=== PATIENT | male | born 1955 | race Caucasian/White ===

== ENCOUNTER 2018-12-21 12:18 | Emergency (ER) | payer BC ==
[2018-12-21] MEDS ORDERED: Sodium Chloride 0.9% 2.5 ML Syringe FLUSH PRN (12:40)
[2018-12-21] MEDS ORDERED: Sodium Chloride 0.9% 1,000 ML IV ONE (12:40)
[2018-12-21] MEDS ORDERED: Sodium Chloride 0.9% 10 ML Syringe FLUSH PRN (12:40)
[2018-12-21] MEDS ORDERED: Ondansetron 4 MG/2 ML SDV IVPUSH ONE (12:40)
[2018-12-21] MEDS ORDERED: Ketorolac 30 MG/ML SDV IVPUSH ONE (12:40)
--- NOTE | 2018-12-21 12:46 | EDM.PDOC ---
ED HPI GENERAL MEDICAL PROBLEM - General Chief Complaint: Abdominal Pain Stated Complaint: ABDOMINAL PAIN Time Seen by Provider: 12/21/18 12:19 Source of Information: Reports: Patient History Limitations: Reports: No Limitations - History of Present Illness INITIAL COMMENTS - FREE TEXT/NARRATIVE: History of present illness: []Patient started having abdominal pain radiating to his right flank yesterday afternoon. One episode of emesis asked him Tylenol helped alone his pain continued. Today he had one more episode of vomiting and worsening pain and called [facility] who recommended they come to the ER for evaluation. He denies any fevers, chills, diarrhea or previous episodes of this pain or abdominal surgeries. Review of systems: As per history of present illness and below otherwise all systems reviewed and negative. Past medical history: As per history of present illness and as reviewed below otherwise noncontributory. Surgical history: As per history of present illness and as reviewed below otherwise noncontributory. Social history: No reported history of drug or alcohol abuse. Family history: As per history of present illness and as reviewed below otherwise noncontributory. Physical exam: General: Well developed, well nourished in NAD HEENT: Atraumatic, normocephalic, pupils reactive, negative for conjunctival pallor or scleral icterus, mucous membranes moist, throat clear, neck supple, nontender, trachea midline. Lungs: Clear to auscultation, breath sounds equal bilaterally, chest nontender. Heart: S1S2, regular, negative for clicks, rubs, or JVD. Abdomen: NABS, Soft, nondistended, mild tenderness right upper quadrant no rebound or guarding. Negative for masses or hepatosplenomegaly. Negative for costovertebral tenderness. Pelvis: Stable nontender. Genitourinary: Deferred. Rectal: Deferred. Extremities: Atraumatic, negative for cords or calf pain. Neurovascular unremarkable. Neuro: Awake, alert, oriented. Cranial nerves II through XII unremarkable. Cerebellum unremarkable. Motor and sensory unremarkable throughout. Exam nonfocal. Skin:warm and dry Diagnostics: CBC, chemistry, lipase, UA, CT abdomen and pelvis showin millimeter right UVJ stone causing moderate hydronephrosis and hydroureter. 2. Mild enlargement of the prostate gland. 3. Atelectasis traction bronchiectasis and ill-defined centrilobular nodules in the right middle lobe. Clustered micronodules in lingula and atelectasis. Findings likely reflect infectious or inflammatory process to include atypical infections. Therapeutics: Normal saline, Zofran, Toradol ED Course: Stable Impression: Ureterolithiasis Prescriptions: Flomax Plan: Take meds as directed, follow up with your primary care physician, return to ER if symptoms worsen or change. Definitive disposition and diagnosis as appropriate pending reevaluation and review of above. Right Lower Abdomen Pain Score (Numeric/FACES): 3 - Related Data Allergies Allergy/AdvReac Type Severity Reaction Status Date / Time No Known Allergies Allergy Verified 12/21/18 12:44 Home Meds: Home Meds ALPRAZolam [Xanax] 0.25 mg PO DAILY 12/21/18 [History] Aspirin 81 mg PO DAILY 12/21/18 [History] Diclofenac Sodium [Voltaren] 75 mg PO BIDMEALS PRN #20 tab.cr 12/21/18 [Rx] Docusate Sodium 100 mg PO DAILY 12/21/18 [History] Levothyroxine 25 mg PO DAILY 12/21/18 [History] Tamsulosin HCl [Flomax] 0.4 mg PO DAILY #14 cap.er.24h 12/21/18 [Rx] ED ROS GENERAL - Review of Systems Review Of Systems: ROS reveals no pertinent complaints other than HPI. ED EXAM, GI/ABD - Physical Exam Exam: See Below (See history of present illness) Course - Vital Signs Last Recorded V/S: Last Vital Signs Temp 96.1 F 12/21/18 12:47 Pulse 68 12/21/18 14:14 Resp 18 12/21/18 14:14 BP 125/75 12/21/18 14:14 Pulse Ox 98 12/21/18 14:14 - Orders/Labs/Meds Orders: Active Orders 24 hr Category Date Time Status Sodium Chloride 0.9% [Saline Flush] Med 12/21/18 12:40 Active 10 ml FLUSH ASDIRECTED PRN Sodium Chloride 0.9% [Saline Flush] Med 12/21/18 12:40 Active 2.5 ml FLUSH ASDIRECTED PRN Saline Lock Insert [OM.PC] Stat Oth 12/21/18 12:40 Ordered Medication Orders Sodium Chloride (Saline Flush) 10 ml FLUSH ASDIRECTED PRN PRN Reason: Keep Vein Open Last Admin: 12/21/18 13:11 Dose: 10 ml Sodium Chloride (Saline Flush) 2.5 ml FLUSH ASDIRECTED PRN PRN Reason: Keep Vein Open Last Admin: 12/21/18 13:11 Dose: 2.5 ml Labs: Laboratory Tests 12/21/18 12/21/18 12/21/18 Range/Units 12:52 12:52 13:00 WBC 10.14 (4.0-11.0) K/uL RBC 4.44 L (4.50-5.90) M/uL Hgb 14.1 (13.0-17.0) g/dL Hct 42.4 (38.0-50.0) % MCV 95.5 (80.0-98.0) fL MCH 31.8 (27.0-32.0) pg MCHC 33.3 (31.0-37.0) g/dL RDW Std Deviation 44.3 (28.0-62.0) fl RDW Coeff of [place] 13 (11.0-15.0) % Plt Count 182 (150-400) K/uL MPV 10.60 (7.40-12.00) fL Neut % (Auto) 80.2 H (48.0-80.0) % Lymph % (Auto) 12.7 L (16.0-40.0) % [place] % (Auto) 6.6 (0.0-15.0) % Eos % (Auto) 0.3 (0.0-7.0) % Baso % (Auto) 0.2 (0.0-1.5) % Neut # (Auto) 8.1 H (1.4-5.7) K/uL Lymph # (Auto) 1.3 (0.6-2.4) K/uL [place] # (Auto) 0.7 (0.0-0.8) K/uL Eos # (Auto) 0.0 (0.0-0.7) K/uL Baso # (Auto) 0.0 (0.0-0.1) K/uL Nucleated RBC % 0.0 /100WBC Nucleated RBCs # 0 K/uL Sodium 138 (136-148) mmol/L Potassium 4.0 (3.5-5.1) mmol/L Chloride 103 (98-107) mmol/L Carbon Dioxide 26.8 (21.0-32.0) mmol/L BUN 16 (7.0-18.0) mg/dL Creatinine 1.4 H (0.8-1.3) mg/dL Est Cr Clr Drug Dosing 47.82 mL/min Estimated GFR (MDRD) 51.2 ml/min Glucose 151 H (74-106) mg/dL Calcium 9.0 (8.5-10.1) mg/dL Total Bilirubin 1.1 H (0.2-1.0) mg/dL AST 21 (15-37) IU/L ALT 23 (14-63) IU/L Alkaline Phosphatase 71 (46-116) U/L Total Protein 7.1 (6.4-8.2) g/dL Albumin 3.8 (3.4-5.0) g/dL Globulin 3.3 (2.6-4.0) g/dL Albumin/Globulin Ratio 1.2 (0.9-1.6) Lipase 347 (73-393) U/L Urine Color YELLOW Urine Appearance CLEAR Urine pH 7.0 (5.0-8.0) Ur Specific [place] 1.015 (1.001-1.035) Urine Protein NEGATIVE (NEGATIVE) mg/dL Urine Glucose (UA) NEGATIVE (NEGATIVE) mg/dL Urine Ketones NEGATIVE (NEGATIVE) mg/dL Urine Occult Blood NEGATIVE (NEGATIVE) Urine Nitrite NEGATIVE (NEGATIVE) Urine Bilirubin NEGATIVE (NEGATIVE) Urine Urobilinogen 0.2 (<2.0) EU/dL Ur Leukocyte Esterase NEGATIVE (NEGATIVE) Urine RBC 0-3 (0-2/HPF) Urine WBC 0-2 (0-5/HPF) Ur Epithelial Cells RARE (NONE-FEW) Urine Bacteria RARE (NEGATIVE) Meds: Medications Generic Name Dose Route Start Last Admin Trade Name Freq PRN Reason Stop Dose Admin Sodium Chloride 10 ml 12/21/18 12:40 12/21/18 13:11 Saline Flush FLUSH 10 ml ASDIRECTED PRN Administration Keep Vein Open Sodium Chloride 2.5 ml 12/21/18 12:40 12/21/18 13:11 Saline Flush FLUSH 2.5 ml ASDIRECTED PRN Administration Keep Vein Open Discontinued Medications Generic Name Dose Route Start Last Admin Trade Name Freq PRN Reason Stop Dose Admin Sodium Chloride 1,000 mls @ 999 mls/hr 12/21/18 12:40 12/21/18 13:09 Normal Saline IV 12/21/18 13:40 999 mls/hr .Bolus ONE Administration Ketorolac Tromethamine 30 mg 12/21/18 12:40 12/21/18 13:10 Toradol IVPUSH 12/21/18 12:41 30 mg ONETIME ONE Administration Ondansetron HCl 4 mg 12/21/18 12:40 12/21/18 13:10 Zofran IVPUSH 12/21/18 12:41 4 mg ONETIME ONE Administration Departure - Departure Time of Disposition: 15:11 Disposition: Home, Self-Care 01 Condition: Good Clinical Impression: Ureterolithiasis Clinical Impression: (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 This information is to outline your options for follow-up care. We provide all patients seen in our emergency department with a follow-up referral. The need for follow-up, as well as the timing and circumstances, are variable depending upon the specifics of your emergency department visit. If you don't have a primary care physician on staff, we will provide you with a referral. We always advise you to contact your personal physician following an emergency department visit to inform them of the circumstance of the visit and for follow-up with them and/or the need for any referrals to a consulting specialist. The emergency department will also refer you to a specialist when appropriate. This referral assures that you have the opportunity for follow-up care with a specialist. All of these measure are taken in an effort to provide you with optimal care, which includes your follow-up. Under all circumstances we always encourage you to contact your private physician who remains a resource for coordinating your care. When calling for follow-up care, please make the office aware that this follow-up is from your recent emergency room visit. If for any reason you are refused follow-up, please contact the [facility] Emergency Department at and asked to speak to the emergency department charge nurse. Take meds as directed, follow up with your primary care physician, return to ER if symptoms worsen or change. [facility] - Urology [address] [place] [id number] - My Orders Last 24 Hours: My Active Orders 12/21/18 12:40 Sodium Chloride 0.9% [Saline Flush] 10 ml FLUSH ASDIRECTED PRN Sodium Chloride 0.9% [Saline Flush] 2.5 ml FLUSH ASDIRECTED PRN Saline Lock Insert [OM.PC] Stat - Assessment/Plan Last 24 Hours: My Active Orders 12/21/18 12:40 Sodium Chloride 0.9% [Saline Flush] 10 ml FLUSH ASDIRECTED PRN Sodium Chloride 0.9% [Saline Flush] 2.5 ml FLUSH ASDIRECTED PRN Saline Lock Insert [OM.PC] Stat
--- NOTE | 2018-12-21 15:02 | CT ---
HISTORY: Right upper quadrant and flank pain. TECHNIQUE: Noncontrast CT abdomen pelvis. Coronal sagittal reformatted images obtained. FINDINGS: Heart size is normal. There is atelectasis, traction bronchiectasis in the right middle lobe and ill-defined centrilobular nodules. Minimal clustered micronodules and atelectasis in the lingula as well. Findings likely reflect infectious inflammatory etiologies to include atypical infections. The unenhanced liver spleen adrenal glands are unremarkable. Pancreas is unremarkable as well as the gallbladder. No abdominal aortic aneurysm. Punctate nonobstructing left renal calculi. No obstructing right renal calculi. Left kidney appears unremarkable. There is moderate hydronephrosis and hydroureter with a 3 mm stone in the right UVJ. Prostate gland is mildly enlarged. There is diverticulosis. Abundant stool in the colon. Bowel otherwise is unremarkable. No suspicious bony lesions. IMPRESSION: 1. 3 millimeter right UVJ stone causing moderate hydronephrosis and hydroureter. 2. Mild enlargement of the prostate gland. 3. Atelectasis traction bronchiectasis and ill-defined centrilobular nodules in the right middle lobe. Clustered micronodules in lingula and atelectasis. Findings likely reflect infectious or inflammatory process to include atypical infections. Please note that all CT scans at this facility use dose modulation, iterative reconstruction, and/or weight-based dosing when appropriate to reduce radiation dose to as low as reasonably achievable. Dictated by Kati Joseph MD @ Dec 21 2018 2:53PM Signed by Dr. Kati Joseph @ Dec 21 2018 2:59PM
== END 2018-12-21 15:31 | disposition home or self-care (01) ==
LOC: MW.ED 12:18
DX: N13.2 Hydronephrosis with renal and ureteral calculous obstruction (principal); Z79.82 Long term (current) use of aspirin; Z79.899 Other long term (current) drug therapy
CPT/HCPCS: 36415; 74176; 80053; 81001; 83690; 85025; 96361; 96374; 96375; 99284; J1885; J2405; J7040